=== PATIENT | female | born 1945 | race Caucasian/White ===

== ENCOUNTER 2018-09-06 13:49 | Inpatient (IN) ==
--- NOTE | 2018-09-06 14:16 | ED ---
HPI General Chief Complaint: Arrhythmia / Palpitations Stated Complaint: high heart rate x 1 wk Time Seen by Provider: 09/06/18 14:15 Source: patient Mode of arrival: ambulatory Limitations: no limitations History of Present Illness HPI narrative: Patient presents with complaints of mild shortness of breath while ambulating about [facility]. States that she has been going in and out of A. fib more frequently over the last several weeks. She stopped taking her Xarelto sometime ago. Continues to take a diltiazem for blood pressure and aspirin for anticoagulation. Denies any chest pain. Denies any urinary or bowel symptoms. Denies any nausea vomiting diarrhea or fever. complaint: Reports palpitations Onset (ago): week(s) Duration: intermittent Severity: mild Context: Reports occurred during exertion Arrhythmia history: Reports atrial fibrillation Associated symptoms: Reports other (none) Treatments prior to arrival: Reports other (none) Related Data Home Medications Medication Instructions Recorded Confirmed aspirin [Aspir-Low] 81 mg PO DAILY 09/06/18 09/06/18 atenolol 50 mg PO DAILY 09/06/18 09/06/18 atorvastatin 10 mg PO DAILY 09/06/18 09/06/18 diltiazem HCl [Cartia XT] 180 mg PO DAILY 09/06/18 09/06/18 levothyroxine 50 mcg PO DAILY 09/06/18 09/06/18 lisinopril-hydrochlorothiazide 1 tab PO DAILY 09/06/18 09/06/18 Allergies Allergy/AdvReac Type Severity Reaction Status Date / Time No Known Allergies Allergy Verified 09/06/18 13:54 Review of Systems ROS: all other systems reviewed are negative [facility] Medical History Medical History Afib (Acute) High cholesterol (Acute) Hx of hysterectomy (Acute) Hypertension (Acute) Thyroid disease (Acute) Social History Social History Substance History: No History of Abuse Second Hand Smoke Exposure: No Smoking Status: Never smoker How Often Do You Have a Drink Containing Alcohol: 4 or more times a week Recent Travel in [facility] within the Last 8 Weeks: No Recent Out of Country Travel within the Last 8 Weeks: No Immunization History Tetanus Immunization: Unsure Exam Narrative Exam Narrative: CARDIOVASCULAR: Irregular rate and rhythm without murmurs, gallops, or rubs. RESPIRATORY: Breath sounds equal bilaterally. No accessory muscle use. GASTROINTESTINAL: Abdomen soft, normal bowel sounds, non-tender, nondistended. MUSCULOSKELETAL: No cyanosis, or edema. BACK: Nontender without obvious deformity. No CVA tenderness. Course Initial Documented Vital Signs Temperature 98.0 F 09/06/18 13:51 Pulse Rate 103 H 09/06/18 13:51 Respiratory Rate 16 09/06/18 13:51 Blood Pressure 148/85 H 09/06/18 13:51 Pulse Oximetry 92 L 09/06/18 13:51 Last Documented Vital Signs Temperature 98.0 F 09/06/18 13:51 Pulse Rate 69 09/06/18 14:48 Respiratory Rate 20 09/06/18 14:48 Blood Pressure 126/82 09/06/18 14:48 Pulse Oximetry 96 09/06/18 14:48 Medical Decision Making MDM Narrative Medical decision making narrative: SALO score of one. Heparin drip initiated. Spoke with Dr. Arriola who is in agreement will admit for further evaluation. Medical Screen Exam Complete: Yes Emergency Medical Condition: Yes Differential Diagnosis Differential Diagnosis: Atrial fibrillation, acute coronary syndrome, pulmonary embolus Medical Records Medical records reviewed: Yes I reviewed the patient's medical records. Lab Data Result diagrams: 09/06/18 14:00 09/06/18 14:40 Lab Results 09/06/18 09/06/18 09/06/18 Range/Units 14:00 14:40 14:40 CBC w Diff Auto diff final WBC 6.9 (4.0-11.0) th/mm3 RBC 4.99 (4.00-5.30) mil/mm3 Hgb 16.2 H (11.6-15.3) gm/dL Hct 48.5 H (35.0-46.0) % MCV 97.3 (80.0-100.0) fL MCH 32.5 (27.0-34.0) pg MCHC 33.4 (32.0-36.0) % RDW 13.1 (11.6-17.2) % Plt Count 189 (150-450) th/mm3 MPV 9.7 (7.0-11.0) fL Neut % (Auto) 57.2 (16.0-70.0) % Lymph % (Auto) 30.2 (9.0-44.0) % [place] % (Auto) 8.9 H (0.0-8.0) % Eos % (Auto) 2.3 (0.0-4.0) % Baso % (Auto) 1.4 (0.0-2.0) % Neut # (Auto) 3.9 (1.8-7.7) th/mm3 Lymph # (Auto) 2.1 (1.0-4.8) th/mm3 [place] # (Auto) 0.6 (0.0-0.9) th/mm3 Eos # (Auto) 0.2 (0.0-0.4) th/mm3 Baso # (Auto) 0.1 (0.0-0.2) th/mm3 WBC Differential . Differential Comment . PT 10.8 (9.8-11.6) sec INR 1.1 Ratio APTT 25.8 (23.4-31.7) sec Sodium 136 (136-145) meq/L Potassium 3.9 (3.5-5.1) meq/L Chloride 101 (98-107) meq/L Carbon Dioxide 24.2 (21.0-32.0) meq/L Anion Gap 11 (5-15) meq/L BUN 13 (7-18) mg/dL Creatinine 0.80 (0.50-1.00) mg/dL Estimated GFR 70 L (>89) mL/min Random Glucose 116 H (74-106) mg/dL Calcium 8.7 (8.5-10.1) mg/dL Total Bilirubin 1.1 H (0.2-1.0) mg/dL AST 53 H (15-37) U/L ALT 41 (10-53) U/L Alkaline Phosphatase 92 (45-117) U/L Troponin I Less than 0.02 L (0.02-0.05) ng/mL Total Protein 7.1 (6.4-8.2) g/dL Albumin 3.7 (3.4-5.0) g/dL Imaging Data Radiologist's impression: Chest X-Ray 09/06/18 14:16 CONCLUSION: Cardiomegaly. Chest CTA 09/06/18 14:25 CONCLUSION: 1. Extensive large bilateral saddle pulmonary emboli are noted extending into the branches of all lobes bilaterally. 2. Markedly enlarged heart and coronary artery calcifications. 3. Scattered atelectasis and/or fibrotic scarring bilaterally. ECG Data Attestation: I personally reviewed and interpreted this ECG as follows: (EKG reveals A. fib with a rate of 81, no ST segment elevation or depression) Discharge Plan Discharge Disposition Patient Disposition: ED Admit(ED Internal Use Only) Discharge Condition Condition: Good Discharge Order Discharge Orders: ED Use Only Admit Order (Routine); Ordered 09/06/18 Ordered By: Sahil Thurston Discharge Details Diagnosis: Pulmonary emboli Physicians Team ED Provider: Sahil Thurston Primary Care Provider: Torie Padgett Attending Provider: David Arriola Discharge Interventions Interventions: Vital Signs Last Done: 09/06/18 14:11 Status ED Status: Admitted Patient
[2018-09-06 14:23] LABS: Baso # (Auto) 0.1 th/mm3 (0.0-0.2); Baso % (Auto) 1.4 % (0.0-2.0); Eos # (Auto) 0.2 th/mm3 (0.0-0.4); Eos % (Auto) 2.3 % (0.0-4.0); Hematocrit 48.5 % (35.0-46.0); Hemoglobin 16.2 gm/dL (11.6-15.3); Lymph # (Auto) 2.1 th/mm3 (1.0-4.8); Lymph % (Auto) 30.2 % (9.0-44.0); Mean Corpuscular HGB Conc 33.4 % (32.0-36.0); Mean Corpuscular Hemoglobin 32.5 pg (27.0-34.0); Mean Corpuscular Volume 97.3 fL (80.0-100.0); Mean Platelet Volume 9.7 fL (7.0-11.0); Mono # (Auto) 0.6 th/mm3 (0.0-0.9); Mono % (Auto) 8.9 % (0.0-8.0); Neut # (Auto) 3.9 th/mm3 (1.8-7.7); Neut % (Auto) 57.2 % (16.0-70.0); Platelet Count 189 th/mm3 (150-450); Red Blood Count 4.99 mil/mm3 (4.00-5.30); Red Cell Distribution Width 13.1 % (11.6-17.2); White Blood Count 6.9 th/mm3 (4.0-11.0)
--- NOTE | 2018-09-06 14:55 | XR ---
EXAM DATE: 09/06/2018 2:49 PM EST AGE/SEX: 73 years / Female INDICATIONS: Short of breath CLINICAL DATA: This is the patient's initial encounter. Patient reports that signs and symptoms have been present for 1 week and indicates a pain score of 0/10. MEDICAL/SURGICAL HISTORY: . . COMPARISON: No prior exams available for comparison. FINDINGS: The heart size is enlarged. Aortic calcifications are present. The lungs are grossly clear. No effusi on is seen. CONCLUSION: Cardiomegaly. Electronically signed by: Vlad Minor MD Board Certified Radiologist 09/06/2018 2:53 PM EST
[2018-09-06 15:16] LABS: Chloride 101 meq/L (98-107); Potassium 3.9 meq/L (3.5-5.1); Sodium 136 meq/L (136-145)
[2018-09-06 15:19] LABS: Albumin 3.7 g/dL (3.4-5.0); Anion Gap 11 meq/L (5-15); Calcium 8.7 mg/dL (8.5-10.1); Carbon Dioxide 24.2 meq/L (21.0-32.0)
[2018-09-06 15:20] LABS: Blood Urea Nitrogen 13 mg/dL (7-18); Glucose,Random 116 mg/dL (74-106)
[2018-09-06 15:23] LABS: Alanine Aminotransferase 41 U/L (10-53); Aspartate Aminotransferase 53 U/L (15-37); Glomerular Filtration Rate 70 mL/min (>89)
[2018-09-06 15:24] LABS: Total Protein 7.1 g/dL (6.4-8.2)
[2018-09-06 15:25] LABS: Alkaline Phosphatase 92 U/L (45-117)
--- NOTE | 2018-09-06 15:51 | CT ---
EXAM DATE: 09/06/2018 3:39 PM EST AGE/SEX: 73 years / Female INDICATIONS: Heart palpitations, increased heart rate for a week. CLINICAL DATA: This is the patient's initial encounter. Patient reports that signs and symptoms have been present for 1 week and indicates a pain score of 2/10. MEDICAL/SURGICAL HISTORY: Hypercholesterolemia. Hypertension. Thyroid disease. Hysterectomy. RADIATION DOSE: 7.85 CTDI (mGy) COMPARISON: No prior exams available for comparison. TECHNIQUE: Volumetric scanning was performed using a multi-row detector CT scanner during bolus infu louis of 100ml ml Omnipaque 350 (iohexol) nonionic water-soluble contrast as a single exam dose. The data was post processed with a variety of visualization algorithms including full volume maximum inte nsity projection and sliding thin slab reformation. Using automated exposure control and adjustment o f the mA and/or kV according to patient size, radiation dose was kept as low as reasonably achievable to obtain optimal diagnostic quality images. DICOM format image data is available electronically fo r review and comparison. FINDINGS: Pulmonary Arteries: Extensive large bilateral saddle pulmonary emboli are noted extending into the b ranches of all lobes bilaterally. Lung: No infiltrates seen. Scattered atelectasis and/or fibrotic scarring is noted bilaterally. Effusion: None. Mediastinum: No evidence of mediastinal or hilar adenopathy. The heart is markedly enlarged. Coronar y artery calcifications are noted. Other: The axilla is unremarkable. CONCLUSION: 1. Extensive large bilateral saddle pulmonary emboli are noted extending into the branches of all lo bes bilaterally. 2. Markedly enlarged heart and coronary artery calcifications. 3. Scattered atelectasis and/or fibrotic scarring bilaterally. Electronically signed by: Mode Aguayo MD Board Certified Radiologist 09/06/2018 3:50 PM EST
[2018-09-06 15:58] LABS: Activated Partial Thrombo Time 25.8 sec (23.4-31.7); INR 1.1 Ratio; Prothrombin Time 10.8 sec (9.8-11.6)
[2018-09-06] MEDS ORDERED: Heparin 10,000 UNITS/10 ML Vial (for IV use) IV.PUSH STA (16:18)
[2018-09-06] MEDS: Heparin Drip 25,000 UNIT/250 ML BAG IV.CONT PRN (16:32)
[2018-09-06] MEDS ORDERED: Bisacodyl 10 MG Supp RECTAL PRN (16:33)
--- NOTE | 2018-09-06 17:24 | P.HPIM ---
History of Present Illness Primary Care Physician: Torie Padgett MD History of Present Illness: 73 yo M with h/o HTN,A.fib,Hypothyroidism, who presented to ER with shortness of breath. Patient reports that SOB started about 3 months ago after coming back from [place], but has been progressively getting worse. Prior to that she could to 3 miles on treadmill,and even hike without problems. When she came back she noticed that she got some SOB with activity but non when at rest). She had to reduce the distance done on treadmill. She would get short of breath going up 2 flights of stairs. This progressively got worse and this morning while making the bed she felt tired and SOB. She went to the [place] with her this afternoon and was exhausted and SOB after just walking a short distance, hence she decided to come to ER. 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 She denies dizziness, lightheadedness,chest pain, or passing out. ROS is negative. On presentation to the ER,patient had stable vitals, labs were unremarkable, troponin negative. CXR was unremarkable.CTA chest revealed extensive bilateral saddle pulmonary emboli extending into branches of all lobes bilaterally. Patient was started on heparin drip. Inpatient Certification Inpatient Certification: I certify that the inpatient services were ordered in accordance with Medicare regulations governing the order. This includes certification that hospital inpatient services are reasonable and necessary and in the case of services not specified as inpatient-only under 42 CFR 419.22(n), that they are appropriately provided as inpatient services in accordance to with the 2-midnight benchmark under 43 CFR 412.3(e) Estimated Total Length of Stay (Days): 3 Plans for Post Hospital Care: Home Review of Systems Review of Systems: all other systems reviewed are negative [facility] Medical History Medical History Afib (Acute) High cholesterol (Acute) Hx of hysterectomy (Acute) Hypertension (Acute) Thyroid disease (Acute) Social History Social History Substance History: No History of Abuse Second Hand Smoke Exposure: No Smoking Status: Never smoker How Often Do You Have a Drink Containing Alcohol: 2 to 4 times a month Recent Travel in [facility] within the Last 8 Weeks: No Recent Out of Country Travel within the Last 8 Weeks: No Immunization History Tetanus Immunization: Unsure Medications and Allergies Allergies Allergy/AdvReac Type Severity Reaction Status Date / Time No Known Allergies Allergy Verified 09/06/18 13:54 Home Medications Medication Instructions Recorded Confirmed Type aspirin [Aspir-Low] 81 mg PO DAILY 09/06/18 09/06/18 History atenolol 50 mg PO DAILY 09/06/18 09/06/18 History atorvastatin 10 mg PO DAILY 09/06/18 09/06/18 History diltiazem HCl [Cartia XT] 180 mg PO DAILY 09/06/18 09/06/18 History levothyroxine 50 mcg PO DAILY 09/06/18 09/06/18 History lisinopril-hydrochlorothiazide 1 tab PO DAILY 09/06/18 09/06/18 History Active Medications: Active Medications Al Hydroxide/Mg Hydroxide (Milk Of Magnesia Liq) 30 ml PO Q12H PRN PRN Reason: Mild Constipation Bisacodyl (Dulcolax Supp) 10 mg RECTAL DAILY PRN PRN Reason: SEVERE CONSITIPATION Heparin Sodium/Dextrose (Heparin/D5w 25,000 U/250 Ml) 25,000 unit in 250 mls @ 0 mls/hr IV.CONT TITRATE PRN; Protocol PRN Reason: Per Protocol Last Admin: 09/06/18 16:32 Dose: 1,100 units/hr, 11 mls/hr Lactulose (Lactulose Liq) 30 ml PO DAILY PRN PRN Reason: SEVERE CONSITIPATION Senna/Docusate Sodium (Lynette-Colace) 1 tab PO BID BRITTNEY Sennosides (Senokot) 17.2 mg PO Q12H PRN PRN Reason: Moderate Constipation Sodium Chloride (Ns Flush) 2 ml IV.FLUSH UNSCH PRN PRN Reason: FLUSH AFTER USING IV ACCESS Sodium Chloride (Ns Flush) 2 ml IV.FLUSH BID BRITTNEY Sodium Chloride (Ns Flush) 2 ml IV.FLUSH PRN PRN PRN Reason: FLUSH AFTER USING IV ACCESS Physical Exam Vital signs: Last Vital Signs Temp 98.0 F 09/06/18 13:51 Pulse 59 L 09/06/18 16:36 Resp 20 09/06/18 16:36 BP 124/80 09/06/18 16:36 Pulse Ox 97 09/06/18 16:36 Intake & Output 09/04/18 09/05/18 09/06/18 09/07/18 06:59 06:59 06:59 06:59 Weight 58.4 kg Narrative: GENERAL: This is a well-nourished, well-developed patient, in no apparent distress. HEENT:not pale,anicteric,acyanotic, nasal canula in situ. CARDIOVASCULAR: irregular rhythm, without murmurs, gallops, or rubs. RESPIRATORY: Clear to auscultation. Breath sounds equal bilaterally. No wheezes , rales, or rhonchi. GASTROINTESTINAL: Abdomen soft, non-tender, nondistended. Normal active bowel sounds MUSCULOSKELETAL: Extremities without clubbing, cyanosis, or edema. NEURO: Alert & Oriented x4 to person, place, time, situation. Moves all ext x4 Results Labs CBC & Chem 7: 09/06/18 14:00 09/06/18 14:40 Imaging Impressions Chest X-Ray 09/06/18 14:16 CONCLUSION: Cardiomegaly. Chest CTA 09/06/18 14:25 CONCLUSION: 1. Extensive large bilateral saddle pulmonary emboli are noted extending into the branches of all lobes bilaterally. 2. Markedly enlarged heart and coronary artery calcifications. 3. Scattered atelectasis and/or fibrotic scarring bilaterally. Caprini VTE Risk Assessment Caprini VTE Risk Assessment: Moderate/High Risk (score >= 2) Caprini Risk Assessment Model: Point Value = 1 Point Value = 2 Point Value = 3 Point Value = 5 Age 41-60 Minor surgery BMI > 25 kg/m2 Swollen legs Varicose veins or History of unexplained or recurrent spontaneous Oral contraceptives or hormone replacement Sepsis (< 1 month) Serious lung disease, including pneumonia (< 1 month) Abnormal pulmonary function Acute myocardial infarction Congestive heart failure (< 1 month) History of inflammatory bowel disease Medical patient at bed rest Age 61-74 Arthroscopic surgery Major open surgery (> 45 min) Laparoscopic surgery (> 45 min) Malignancy Confined to bed (> 72 hours) Immobilizing plaster cast Central venous access Age >= 75 History of VTE Family history of VTE Factor V Leiden Prothrombin [id number] Lupus anticoagulant Anticardiolipin antibodies Elevated serum homocysteine Heparin-induced thrombocytopenia Other congenital or acquired thrombophilia Stroke (< 1 month) Elective arthroplasty Hip, pelvis, or leg fracture Acute spinal cord injury (< 1 month) Prophylaxis Regimen: Total Risk Factor Score Risk Level Prophylaxis Regimen 0-1 Low Early ambulation 2 Moderate Order ONE of the following: *Sequential Compression Device (SCD) *Heparin 5000 units SQ BID 3-4 Higher Order ONE of the following medications: *Heparin 5000 units SQ TID *Enoxaparin/Lovenox 40 mg SQ daily (WT < 150 kg, CrCl > 30 mL/min) *Enoxaparin/Lovenox 30 mg SQ daily (WT < 150 kg, CrCl > 10-29 mL/min) *Enoxaparin/Lovenox 30 mg SQ BID (WT < 150 kg, CrCl > 30 mL/min) AND/OR *Sequential Compression Device (SCD) 5 or more Highest Order ONE of the following medications: *Heparin 5000 units SQ TID (Preferred with Epidurals) *Enoxaparin/Lovenox 40 mg SQ daily (WT < 150 kg, CrCl > 30 mL/min) *Enoxaparin/Lovenox 30 mg SQ daily (WT < 150 kg, CrCl > 10-29 mL/min) *Enoxaparin/Lovenox 30 mg SQ BID (WT < 150 kg, CrCl > 30 mL/min) AND *Sequential Compression Device (SCD) Assessment and Plan Plan 73 yo M with h/o HTN,A.fib,Hypothyroidism, who presented to ER with shortness of breath, found to have a saddle PE. Acute problem: SADDLE PULMONARY EMBOLISM: Patient hemodynamically stable, was saturating 92% on room air in ER,but put on nasal canula, sats 95-97%. no shortness of breath at rest. troponin negative. Continue Heparin drip. Obtain 2D ECHO to eval RV strain, LE dopplers. d/w patient re: anticoagulation, she would like to go back to Xarelto on discharge. will monitor patient in ICU for now given extent of her PE. Stable chronic conditions: #TN-resume home medication #Atrial fib-rate controlled, resume home medication. #Hypothyroidism-continue Levothyroxine. #Hyperlipidemia-cont Atorvastatin
[2018-09-06] MEDS: Senna/Docusate Sodium 8.6/50 MG Tablet PO SCH (22:15)
[2018-09-07] MEDS: Levothyroxine 50 MCG Tablet PO SCH (06:01)
[2018-09-07 07:45] LABS: Hemoglobin 14.8 gm/dL (11.6-15.3); Mean Corpuscular HGB Conc 33.6 % (32.0-36.0); Mean Corpuscular Volume 98.4 fL (80.0-100.0); Mean Platelet Volume 10.4 fL (7.0-11.0); Platelet Count 169 th/mm3 (150-450); Red Blood Count 4.47 mil/mm3 (4.00-5.30); Red Cell Distribution Width 13.6 % (11.6-17.2); White Blood Count 5.1 th/mm3 (4.0-11.0)
[2018-09-07] MEDS: dilTIAZem CD 180 MG Capsule PO SCH (08:29)
[2018-09-07] MEDS: Atenolol 50 MG Tablet PO SCH (08:30)
[2018-09-07] MEDS: Senna/Docusate Sodium 8.6/50 MG Tablet PO SCH ×2 (08:30→21:20)
--- NOTE | 2018-09-07 11:20 | P.PNIM ---
Subjective Interval history: feels ok, no dyspnea at rest. was able to walk to commode without no symptoms. Interval history-desaturated to 87% on room air, currently on 4l/min nasal canula. Physical Exam Vital signs: Last Vital Signs Temp 97.9 F 09/07/18 08:00 Pulse 96 H 09/07/18 10:00 Resp 25 H 09/07/18 10:00 BP 115/85 09/07/18 10:00 Pulse Ox 97 09/07/18 10:00 Intake & Output 09/05/18 09/06/18 09/07/18 09/08/18 06:59 06:59 06:59 06:59 Intake Total 240 / 240 Balance 240 / 240 Weight 57.8 kg Narrative: GENERAL: This is a well-nourished, well-developed patient, in no apparent distress. HEENT:not pale,anicteric,acyanotic, nasal canula in situ. CARDIOVASCULAR: irregular rhythm, without murmurs, gallops, or rubs. RESPIRATORY: Clear to auscultation. Breath sounds equal bilaterally. No wheezes , rales, or rhonchi. GASTROINTESTINAL: Abdomen soft, non-tender, nondistended. Normal active bowel sounds MUSCULOSKELETAL: Extremities without clubbing, cyanosis, or edema. NEURO: Alert & Oriented x4 to person, place, time, situation. Moves all ext x4 Results Labs CBC & Chem 7: 09/07/18 07:15 09/06/18 14:40 Imaging Imaging: Impressions Chest X-Ray 09/06/18 14:16 CONCLUSION: Cardiomegaly. Chest CTA 09/06/18 14:25 CONCLUSION: 1. Extensive large bilateral saddle pulmonary emboli are noted extending into the branches of all lobes bilaterally. 2. Markedly enlarged heart and coronary artery calcifications. 3. Scattered atelectasis and/or fibrotic scarring bilaterally. Assessment and Plan Plan 73 yo M with h/o HTN,A.fib,Hypothyroidism, who presented to ER with shortness of breath, found to have a saddle PE. Acute problem: Saddle Pulmonary Embolism: Patient remains hemodynamically stable, was saturating 87% on room air this morning,but put on nasal canula, sats 95-97%. no shortness of breath at rest. troponin negative. Continue Heparin drip. d/w patient re: anticoagulation and that she will likely need to be on lifelong AC now; she would like to go back to [facility] on discharge. will monitor patient in ICU for now given extent of her PE. Obtain 2D ECHO to eval RV strain--apparently done this afternoon, report still pending. check LE dopplers--negative for DVT. This afternoon patient had episodes of intermittent hypotension with lowest systolic BP being 89, MAP 65. 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 Transfer order has been placed. I have informed the patient and her of the plan. Stable chronic conditions: #HTN-continue home medication #Atrial fib-rate controlled, resume home medication. #Hypothyroidism-continue Levothyroxine. #Hyperlipidemia-cont Atorvastatin discussed plan with patient and her family at bedside. Progress Note: Quality VTE Deep Vein Thrombosis/Pulmonary Embolism Present on Admission: Yes
--- NOTE | 2018-09-07 12:47 | US ---
EXAM DATE: 09/07/2018 12:41 PM EST AGE/SEX: 73 years / Female INDICATIONS: Pulmonary embolism. Evaluate for DVT. CLINICAL DATA: This is the patient's initial encounter. Patient reports that signs and symptoms have been present for 1 week and indicates a pain score of 0/10. MEDICAL/SURGICAL HISTORY: Hypercholesterolemia. Hypertension. Atrial fibrillation. Thyroid di sease. Hysterectomy. COMPARISON: No prior exams available for comparison. TECHNIQUE: Venous ultrasound of both lower extremities was performed from the inguinal ligament to t he proximal calf. Real-time, color Doppler and spectral tracing, compression and augmentation techni ques were used. FINDINGS: Right Leg: Normal compression of the deep venous system from the inguinal region to the proximal ienz f. No echogenic clot is seen. Normal response of the venous system to augmentation and respiration. Left Leg: Normal compression of the deep venous system from the inguinal region to the proximal calf . No echogenic clot is seen. Normal response of the venous system to augmentation and respiration. Other: None. CONCLUSION: No DVT. Electronically signed by: Vlad Minor MD Board Certified Radiologist 09/07/2018 12:45 PM EST
[2018-09-07] MEDS ORDERED: Sodium Chlor 0.9% Inj 500 ML IV.SIG ONE (14:15)
--- NOTE | 2018-09-07 15:54 | ECHRPT ---
Indication: Shortness of breath CONCLUSIONS The left ventricular systolic function is mildly reduced with an estimated ejection fraction in the range of 45- 50%. Wall thickness is normal. Normal left ventricular size. There is moderate tricuspid regurgitation. The estimated pulmonary arterial pressure is 48.7 mmHg. technically difficult study BP: / HR: Rhythm: Sinus MEASUREMENTS (Male / Female) Normal Values Technical Quality:Fair 2D ECHO LV Diastolic Diameter PLAX 3.7 cm 4.2 - 5.9 / 3.9 - 5.3 cm LV Systolic Diameter PLAX 3.0 cm IVS Diastolic Thickness 1.0 cm 0.6 - 1.0 / 0.6 - 0.9 cm LVPW Diastolic Thickness 1.0 cm 0.6 - 1.0 / 0.6 - 0.9 cm LV Relative Wall Thickness 0.6 LVOT Diameter 2.0 cm M-MODE Aortic Root Diameter MM 3.3 cm LA Systolic Diameter MM 3.9 cm LA Ao Ratio MM 1.2 AV Cusp Separation MM 1.7 cm DOPPLER AV Peak Velocity 119.0 cm/s AV Peak Gradient 5.7 mmHg LVOT Peak Velocity 66.6 cm/s LVOT Peak Gradient 1.8 mmHg AV Area Cont Eq pk 1.8 cm TR Peak Velocity 311.0 cm/s TR Peak Gradient 38.7 mmHg Right Atrial Pressure 10.0 mmHg Pulmonary Artery Systolic Pressu 48.7 mmHg Right Ventricular Systolic Press 48.7 mmHg PV Peak Velocity 67.9 cm/s PV Peak Gradient 1.8 mmHg FINDINGS LEFT VENTRICLE The left ventricular systolic function is mildly reduced with an estimated ejection fraction in the range of 45- 50%. Wall thickness is normal. Normal left ventricular size. RIGHT VENTRICLE Normal right ventricular size and systolic function. LEFT ATRIUM The left atrial size is normal. RIGHT ATRIUM The right atrial size is normal. ATRIAL SEPTUM Normal atrial septal thickness without atrial level shunting by limited color doppler interrogation. AORTA The aortic root and proximal ascending aorta are normal in size on limited imaging. MITRAL VALVE Structurally normal mitral valve. No mitral valve stenosis or regurgitation. AORTIC VALVE Trileaflet aortic valve. No aortic valve stenosis or regurgitation. TRICUSPID VALVE There is moderate tricuspid regurgitation. The estimated pulmonary arterial pressure is 48.7 mmHg. PULMONARY VALVE No pulmonary valve regurgitation or stenosis. VESSELS The inferior vena cava is normal in size. PERICARDIUM No pericardial effusion. Evaristo Campos MD, FACC, FSCAI (Electronically Signed) Final Date:07 September 2018 15:53
--- NOTE | 2018-09-07 21:17 | P.CONCC ---
History of Present Illness Service: Critical care medicine Consult date: 09/07/18 Requesting Physician: David Arriola Reason for Consult: submassive pulmonary embolism Primary Care Provider: Torie Padgett MD Chief Complaint: shortness of breath History of Present Illness: 73yF with history of afib who presents with subacute shortness of breath and poor exercise tolerance over last 1 week. originally admitted to hospitalist service for submassive PE. developed transient hypotension requiring transfer to [facility] ICU. Per the patient, she was originally on Xarelto for afib, but after consultation with her physician, she and her weighed the risks/ benefits of full anticoagulation and decided 81mg ASA was a better therapeutic option for her, when weighing all the risks and benefits. The patient typically walks up 7 flights of stairs daily without problems, but over last 1 week had difficulty walking on flat ground without dypsnea. Also has been traveling significantly since april, and has had a number of long car and plane rides. BNP slightly elevated. trop negative x 2. CT pulmonary angiogram significant for multiple bilateral pulmonary emboli, which meet clot burden criteria for submassive PE. patient stable on nc o2 with stable hemodynamics on my evaluation. 2d echo with EF 45% and moderate pulmonary hypertension, but per echo report by Dr. Campos, normal RV size and function. with the exception of decreased exercise tolerance and SOB, WILKINS, remainder of the ROS negative. specifically, negative for chest pain, fever, chills, n/v/c/d or abd pain, cough , congestion. FHx: negative for clotting disorders, bleeding disorders, PE, stroke, CT. Review of Systems All other systems reviewed negative except as stated in HPI PMFSH - History History Provided By: Patient - Medical History Medical History: Medical History (Last Reviewed 09/07/18 @ 21:10 by Gennaro Johnson MD) Afib High cholesterol Hx of hysterectomy Hypertension Thyroid disease - Social History I have reviewed the patient's Social History: Yes - Tobacco History Second Hand Smoke Exposure: No Smoking Status: Never smoker - Alcohol History How Often Do You Have a Drink Containing Alcohol: 2 to 4 times a month - Substance Use History Substance History: No History of Abuse - Travel History Recent Travel in the [place] Within the Last 8 Weeks: No Recent Travel Out of the Country Within the Last 8 Weeks: No - Immunization History Tetanus Immunization: Unsure Hx Influenza Vaccine This Season: Yes Medications and Allergies Active Medications: Active Medications Al Hydroxide/Mg Hydroxide (Milk Of Magnesia Liq) 30 ml PO Q12H PRN PRN Reason: Mild Constipation Aspirin (Ecotrin) 81 mg PO DAILY [facility] Last Admin: 09/07/18 08:29 Dose: 81 mg Atenolol (Tenormin) 50 mg PO DAILY [facility] Last Admin: 09/07/18 08:30 Dose: 50 mg Atorvastatin Calcium (Lipitor) 10 mg PO DAILY@2100 [facility] Last Admin: 09/06/18 22:15 Dose: 10 mg Bisacodyl (Dulcolax Supp) 10 mg RECTAL DAILY PRN PRN Reason: SEVERE CONSITIPATION Chlorhexidine Gluconate (Chlorhexidine 2% Cloth) 3 pack TOPICAL DAILY@0400 [facility] Stop: 09/13/18 03:59 Chlorhexidine Gluconate (Chlorhexidine 2% Cloth) 3 pack TOPICAL DAILY@0400 PRN PRN Reason: Extra cloth needed Stop: 09/13/18 03:59 Diltiazem HCl (Cardizem Cd 24hr) 180 mg PO DAILY [facility] Last Admin: 09/07/18 08:29 Dose: 180 mg Heparin Sodium/Dextrose (Heparin/D5w 25,000 U/250 Ml) 25,000 unit in 250 mls @ 0 mls/hr IV.CONT TITRATE PRN; Protocol PRN Reason: Per Protocol Last Titration: 09/07/18 01:48 Dose: 700 units/hr, 7 mls/hr Norepinephrine Bitartrate (Levophed-Dextrose 4 Mg/250 Ml Drip) 4 mg in 250 mls @ 7.5 mls/hr IV.SIG TITRATE PRN; Protocol PRN Reason: Per Protocol Lactulose (Lactulose Liq) 30 ml PO DAILY PRN PRN Reason: SEVERE CONSITIPATION Levothyroxine Sodium (Synthroid) 50 mcg PO DAILY@0600 [facility] Last Admin: 09/07/18 06:01 Dose: 50 mcg Senna/Docusate Sodium (Lynette-Colace) 1 tab PO BID [facility] Last Admin: 09/07/18 08:30 Dose: Not Given Sennosides (Senokot) 17.2 mg PO Q12H PRN PRN Reason: Moderate Constipation Sodium Chloride (Ns Flush) 2 ml IV.FLUSH BID [facility] Last Admin: 09/07/18 08:31 Dose: Not Given Sodium Chloride (Ns Flush) 2 ml IV.FLUSH PRN PRN PRN Reason: FLUSH AFTER USING IV ACCESS Terbutaline Sulfate (Brethine Inj) 1 mg SQ UNSCH PRN PRN Reason: For Extravasation Allergies Allergy/AdvReac Type Severity Reaction Status Date / Time No Known Allergies Allergy Verified 09/06/18 13:54 Home Medications Medication Instructions Recorded Confirmed Type aspirin [Aspir-Low] 81 mg PO DAILY 09/06/18 09/06/18 History atenolol 50 mg PO DAILY 09/06/18 09/06/18 History atorvastatin 10 mg PO DAILY 09/06/18 09/06/18 History diltiazem HCl [Cartia XT] 180 mg PO DAILY 09/06/18 09/06/18 History levothyroxine 50 mcg PO DAILY 09/06/18 09/06/18 History lisinopril-hydrochlorothiazide 1 tab PO DAILY 09/06/18 09/06/18 History Physical Exam Vital signs: Vital Signs 09/06/18 23:00 09/07/18 00:00 09/07/18 01:00 Temperature 36.9 C Pulse Rate 70 68 64 Respiratory Rate 19 17 18 Blood Pressure 119/87 106/73 113/73 Pulse Oximetry 97 97 98 09/07/18 03:00 09/07/18 05:00 09/07/18 06:00 Temperature Pulse Rate 62 58 L 66 Respiratory Rate 17 17 20 Blood Pressure 98/72 L 107/60 115/87 Pulse Oximetry 99 99 99 09/07/18 07:00 09/07/18 07:28 09/07/18 08:00 Temperature 36.6 C Pulse Rate 68 74 90 Respiratory Rate 21 26 H 31 H Blood Pressure 132/85 132/79 127/96 H Pulse Oximetry 98 96 98 09/07/18 08:15 09/07/18 09:20 09/07/18 10:00 Temperature Pulse Rate 106 H 96 H Respiratory Rate 35 H 25 H Blood Pressure 133/77 115/85 Pulse Oximetry 96 97 97 09/07/18 11:00 09/07/18 12:14 09/07/18 13:00 Temperature 36.7 C Pulse Rate 88 94 H 90 Respiratory Rate 32 H 29 H 32 H Blood Pressure 111/84 119/75 88/59 L Pulse Oximetry 94 L 96 97 09/07/18 13:01 09/07/18 13:03 09/07/18 14:00 Temperature Pulse Rate 88 84 66 Respiratory Rate 27 H 30 H 22 Blood Pressure 78/55 L 93/64 L 89/66 L Pulse Oximetry 97 95 92 L 09/07/18 14:29 09/07/18 14:45 09/07/18 14:59 Temperature Pulse Rate 68 70 70 Respiratory Rate 21 32 H 29 H Blood Pressure 114/81 143/81 H 122/77 Pulse Oximetry 94 L 96 95 09/07/18 15:48 09/07/18 15:59 09/07/18 16:59 Temperature 37.1 C Pulse Rate 72 86 Respiratory Rate 21 30 H Blood Pressure 138/87 138/84 Pulse Oximetry 95 96 95 09/07/18 17:59 09/07/18 18:00 09/07/18 18:45 Temperature Pulse Rate 86 84 Respiratory Rate 32 H 29 H Blood Pressure 144/89 H Pulse Oximetry 99 99 96 Intake & Output 09/07/18 09/07/18 09/08/18 06:59 18:59 06:59 Intake Total 740 / 740 Balance 740 / 740 Weight 57.8 kg Intake: IV 500 / 500 NS Inj 500 ML @ Wide Open IV. 500 / 500 SIG BOLUS ONE Rx#:[id number] Oral 240 / 240 Other: # Voids 3 3 Date of Last Bowel Movement 09/06/18 09/06/18 Weight On Admission 58.3 kg Narrative: GENERAL: elderly female, lying in bed, no acute distress. HEENT: Normocephalic. Atraumatic. Pupils equal, round, reactive, conjugate. Mucous membranes are moist NECK: Trachea is midline. There is no JVD. CHEST: equal chest rise. nc o2. unlabored. no accessory muscle use. CARDIOVASCULAR: normal rate, slightly irregular rhythm. afib by tele. ABDOMEN: Soft, nontender, nondistended. No guarding. MUSCULOSKELETAL: Pulses 2+. No peripheral edema. NEUROLOGICAL: RASS 0. CAM-. follows commands. alert and oriented x 3. no focal deficits. Assessment and Plan - Assessment and Plan Plan: Assessment: 73yF with submassive PE by radiographic evidence, but without biomarker or echo evidence of RV strain. Clinically, this also appears to be subacute by clinical history, starting approximately a week ago. Combined with advanced age, medical comorbidities, and lack of evidence of RV stain, lytic therapy is relatively contra-indicated, as the risks of major bleeding outweigh any additional benefits. I have discussed this with the patient and , and they expressed understanding. We will proceed with conservative management and heparinization. I did express that there continued to be an increase risk of sudden-cardiac and the possibility of long-term [id number] limiting dyspnea secondary to WHO Class IV pulmonary hypertension with submassive PE. Admit to ICU for close monitoring. Active Problems: Atrial fibrillation Acute hypoxemia Transient hypotension- resolved Submassive pulmonary embolism Plan: - continue heparin infusion - would likely prefer to place back on home xarelto, as she has tolerated this well in the past - nc o2 for goal spo2 > 90% - will not pursue lytic therapy at this time - 2d echo: normal RV size and function. EF 45%. - needs outpatient cardiac follow up (sees Dr. Epstein as an outpatient) for newly diagnosed mildly depressed LVEF - does not need hematology work-up at this time: has 2 clinical reasons for hypercoagulability, recent travel with long periods of immobility, and afib on inadequate anticoagulation. - admit to ICU - given chronicity of the PE, likely could begin gentle ambulation with PE as early as tomorrow
--- NOTE | 2018-09-08 01:22 | ECG ---
Date Performed: 09/06/2018 Time Performed: 14:10:58 PTAGE: 73 years EKG: ATRIAL FIBRILLATION NONSPECIFIC ST & T-WAVE ABNORMALITY ABNORMAL RHYTHM ECG INTERPRETATION BASED ON A DEFAULT AGE OF 40 YEARS PREVIOUS TRACING : 06/13/1994 09.33 Compared to previous tracing, now in AFib with ST/T wave changes noted DOCTOR: Asa West Interpretating Date/Time 09/08/2018 01:21:31
[2018-09-08] MEDS: Heparin Drip 25,000 UNIT/250 ML BAG IV.CONT PRN (03:14)
[2018-09-08] MEDS ORDERED: Chlorhexidine Gluconate 2% 1 Pack (2 Cloths) TOPICAL PRN (04:00)
[2018-09-08] MEDS: Levothyroxine 50 MCG Tablet PO SCH (05:32)
[2018-09-08] MEDS: Chlorhexidine Gluconate 2% 1 Pack (2 Cloths) TOPICAL SCH (05:32)
[2018-09-08 06:29] LABS: Hematocrit 43.8 % (35.0-46.0); Hemoglobin 15.2 gm/dL (11.6-15.3); Mean Corpuscular HGB Conc 34.7 % (32.0-36.0); Mean Corpuscular Hemoglobin 34.2 pg (27.0-34.0); Mean Corpuscular Volume 98.5 fL (80.0-100.0); Platelet Count 153 th/mm3 (150-450); Red Blood Count 4.45 mil/mm3 (4.00-5.30); Red Cell Distribution Width 13.4 % (11.6-17.2); White Blood Count 5.7 th/mm3 (4.0-11.0)
[2018-09-08] MEDS: dilTIAZem CD 180 MG Capsule PO SCH (08:21)
[2018-09-08] MEDS: Atenolol 50 MG Tablet PO SCH (08:22)
[2018-09-08] MEDS: Senna/Docusate Sodium 8.6/50 MG Tablet PO SCH ×2 (08:22→20:01)
--- NOTE | 2018-09-08 14:05 | P.PNCC ---
Subjective Subjective Remarks/Hospital Course: 09/07: 73yF with history of afib who presents with subacute shortness of breath and poor exercise tolerance over last 1 week. originally admitted to hospitalist service for submassive PE. developed transient hypotension requiring transfer to [facility] ICU. Per the patient, she was originally on Xarelto for afib, but after consultation with her physician, she and her weighed the risks/ benefits of full anticoagulation and decided 81mg ASA was a better therapeutic option for her, when weighing all the risks and benefits. The patient typically walks up 7 flights of stairs daily without problems, but over last 1 week had difficulty walking on flat ground without dypsnea. Also has been traveling significantly since april, and has had a number of long car and plane rides. BNP slightly elevated. trop negative x 2. CT pulmonary angiogram significant for multiple bilateral pulmonary emboli, which meet clot burden criteria for submassive PE. patient stable on nc o2 with stable hemodynamics on my evaluation. 2d echo with EF 45% and moderate pulmonary hypertension, but per echo report by Dr. Campos, normal RV size and function. with the exception of decreased exercise tolerance and SOB, WILKINS, remainder of the ROS negative. specifically, negative for chest pain, fever, chills, n/v/c/d or abd pain, cough , congestion. FHx: negative for clotting disorders, bleeding disorders, PE, stroke, NV. 09/08: Sitting up in bed comfortably not in any acute distress. Denies any chest pain shortness of breath dizziness or lightheadedness. On anticoagulation with heparin. Objective Vital Signs / I&O: Vital Signs 09/07/18 14:00 09/07/18 14:29 09/07/18 14:45 Temperature Pulse Rate 66 68 70 Respiratory Rate 22 21 32 H Blood Pressure 89/66 L 114/81 143/81 H Pulse Oximetry 92 L 94 L 96 09/07/18 14:59 09/07/18 15:48 09/07/18 15:59 Temperature Pulse Rate 70 72 Respiratory Rate 29 H 21 Blood Pressure 122/77 138/87 Pulse Oximetry 95 95 96 09/07/18 16:59 09/07/18 17:59 09/07/18 18:00 Temperature 98.7 F Pulse Rate 86 86 84 Respiratory Rate 30 H 32 H 29 H Blood Pressure 138/84 144/89 H Pulse Oximetry 95 99 99 09/07/18 18:45 09/07/18 19:00 09/07/18 20:00 Temperature Pulse Rate 78 76 Respiratory Rate 24 22 Blood Pressure 133/78 134/78 Pulse Oximetry 96 96 96 09/07/18 20:24 09/07/18 21:00 09/07/18 22:00 Temperature Pulse Rate 84 68 Respiratory Rate 20 18 Blood Pressure 120/69 120/72 Pulse Oximetry 96 95 96 09/07/18 23:00 09/08/18 00:00 09/08/18 01:00 Temperature Pulse Rate 53 L 63 56 L Respiratory Rate 18 18 18 Blood Pressure 110/59 L 114/69 100/72 Pulse Oximetry 96 97 99 09/08/18 02:00 09/08/18 03:00 09/08/18 04:00 Temperature 98.4 F Pulse Rate 51 L 54 L 57 L Respiratory Rate 17 17 18 Blood Pressure 109/57 L 104/64 104/77 Pulse Oximetry 99 100 100 09/08/18 05:00 09/08/18 06:00 09/08/18 07:35 Temperature Pulse Rate 53 L 68 76 Respiratory Rate 17 24 28 H Blood Pressure 116/66 133/81 Pulse Oximetry 96 98 96 09/08/18 08:00 09/08/18 08:01 09/08/18 08:30 Temperature Pulse Rate 86 73 72 Respiratory Rate 36 H 25 H 25 H Blood Pressure 153/74 H 138/89 Pulse Oximetry 97 98 99 09/08/18 09:00 09/08/18 09:30 09/08/18 10:00 Temperature Pulse Rate 74 78 73 Respiratory Rate 31 H 36 H 23 Blood Pressure 147/80 H 129/88 132/83 Pulse Oximetry 98 97 98 09/08/18 10:30 09/08/18 11:00 09/08/18 11:16 Temperature Pulse Rate 93 H 77 Respiratory Rate 29 H 32 H Blood Pressure 135/86 136/90 Pulse Oximetry 94 L 99 100 09/08/18 11:30 09/08/18 12:00 Temperature Pulse Rate 81 66 Respiratory Rate 32 H 38 H Blood Pressure 143/65 H 118/67 Pulse Oximetry 99 98 Intake & Output 09/07/18 09/08/18 09/08/18 18:59 06:59 18:59 Intake Total 740 / 740 700 / 700 Output Total 400 / 400 Balance 740 / 740 300 / 300 Weight 66 kg Intake: IV 500 / 500 250 / 250 Heparin/D5W 25,000 U/250 mL 25, 250 / 250 000 unit In 250 ml @ Per Protocol IV.CONT TITRATE PRN Rx #:[id number] NS Inj 500 ML @ Wide Open IV. 500 / 500 SIG BOLUS ONE Rx#:[id number] Oral 240 / 240 450 / 450 Output: Urine 400 / 400 Other: # Voids 3 Date of Last Bowel Movement 09/06/18 09/06/18 09/06/18 Result Diagrams: 09/08/18 05:28 09/06/18 14:40 Objective Remarks: GENERAL: elderly female, lying in bed, no acute distress. HEENT: Normocephalic. Atraumatic. Pupils equal, round, reactive, conjugate. Mucous membranes are moist NECK: Trachea is midline. There is no JVD. CHEST: equal chest rise. nc o2. unlabored. no accessory muscle use. CARDIOVASCULAR: normal rate, slightly irregular rhythm. afib by tele. ABDOMEN: Soft, nontender, nondistended. No guarding. MUSCULOSKELETAL: Pulses 2+. No peripheral edema. NEUROLOGICAL: RASS 0. CAM-. follows commands. alert and oriented x 3. no focal deficits. Assessment and Plan - Assessment and Plan Plan: Assessment: 73yF with submassive PE by radiographic evidence, but without biomarker or echo evidence of RV strain. Clinically, this also appears to be subacute by clinical history, starting approximately a week ago. Active Problems: Atrial fibrillation Acute hypoxemia Transient hypotension- resolved Submassive pulmonary embolism Plan: - continue heparin infusion - would likely prefer to place back on home xarelto, as she has tolerated this well in the past -Inciting factor appears to be long distance travel by automobile few weeks ago. -Patient's mother of PE while she had pancreatic cancer around the same age. -Consult hematology for further evaluation - nc o2 for goal spo2 > 90% - 2d echo: normal RV size and function. EF 45%. - needs outpatient cardiac follow up (sees Dr. Epstein as an outpatient) for newly diagnosed mildly depressed LVEF -Discussed thrombolytic therapy in case of hemodynamic instability with patient and her and they were agreeable with that option if needed.
--- NOTE | 2018-09-08 17:50 | MB ---
cc: Lizbeth Reardon MD,Mele Daly MD DATE: 09/06/2018 REFERRING PHYSICIAN: Mele Mccall MD CHIEF COMPLAINT: Dr. Mccall requests a consultation for Ms. Jean regarding provoked pulmonary embolism. HISTORY OF PRESENT ILLNESS: Ms. Jean is a pleasant 73-year-old woman with history of atrial fibrillation, hypercholesterolemia, hypertension and hypothyroidism. She and her are retired and have spent some time in [place]. Apparently prior to going to [place] she has had a complete checkup with Dr. 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 Manley. She was given a clean bill. Most recent trip was an auto train ride to [facility]. They were quite sedentary during the overnight train ride. They also had a car ride after that. Ever since then, she felt that she was more short of breath and attributed it to her age. She had shortness of breath while walking a pavilion and increased heart rate. She came into the emergency room on 09/06/2018. A CT angiogram was performed that shows an extensive bilateral saddle pulmonary emboli, extending into the branches of all lobes bilaterally. There is marked enlargement of the heart and coronary calcifications. There were scattered atelectasis and fibrotic scarring bilaterally. She was admitted to the ICU with submassive pulmonary embolism. She was started on unfractionated heparin. Echo showed that the RV size was normal. Function was normal. She had some dyspnea on exertion, but no chest pain. She was feeling well and better at the time of the consultation. Hematology oncology is consulted for the pulmonary embolism. REVIEW OF SYSTEMS: She denies any fevers, chills or night sweats. She is up-to-date with mammograms, Pap smears and she has had a colonoscopy. She denies any urinary complaints. She has had no other intercurrent illness. She was otherwise previously active with a great deal of travel with her . PAST MEDICAL HISTORY: Atrial fibrillation, submassive pulmonary embolism, hypothyroidism, hypertension, hypercholesterolemia. SOCIAL HISTORY: She is and lives with her . She is a never smoker. She drinks 4 or more drinks per week. FAMILY HISTORY: Mother had pancreatic cancer and had pulmonary emboli. ALLERGIES: NO KNOWN DRUG ALLERGIES. CURRENT MEDICATIONS: 1. Ecotrin 2. Tenormin. 3. Lipitor. 4. Dulcolax. 5. Chlorhexidine. 6. Cardizem. 7. Unfractionated heparin. 8. Lactulose. 9. Synthroid. 10. Lynette-Colace. PHYSICAL EXAMINATION: VITAL SIGNS: Temperature 98.4, heart rate 67, respiratory rate 32, blood pressure 120/76, saturation 99%. GENERAL: Mrs. Jean is a well-developed, well-nourished woman in no acute distress. She is lying in bed with at bedside and granddaughters are accompanying her. HEENT: Her pupils are round, reactive to light and accommodation. Oropharynx is clear. NECK: Supple. LUNGS: Clear anteriorly. CARDIOVASCULAR: Reveals rate controlled rhythm. ABDOMEN: Benign. EXTREMITIES: Lower extremities with no edema. Pneumatic compression stockings are in place. No leg swelling. CT angiogram as described above. Doppler ultrasound of lower extremities negative. LABORATORY DATA: CBC is normal. Chemistry with a BUN 13, creatinine 0.8, total bilirubin of 1.1, AST 53. ASSESSMENT AND PLAN: Mrs. Jean is a 73-year-old woman with multiple medical problems described above. She has a provoked pulmonary embolism. She had a long car ride and a train ride on the [employer] train. She presented with submassive pulmonary embolism. We had a lengthy discussion about anticoagulation. I recommend continued anticoagulant therapy without interruption. We discussed risk and benefit of new oral anticoagulant. I concur that we could switch her to a new oral anticoagulant once she is ready to leave the hospital. We discussed the difference between Xarelto and Eliquis. We discussed the study of Eliquis for acute venous thromboembolic event treatment and for the secondary prophylaxis and subsequent prophylactic dosing. We also discussed a twice-daily dosing, which may be advantageous to her in light of her submassive pulmonary emboli. We discussed in general terms of pharmacokinetic of once daily dosing versus twice-daily dosing. They are more comfortable to proceed with twice-daily dosing with the Eliquis. She denies any significant GI toxicity related to the Xarelto when she was on it. However, she did not like the medication enough that she only took it every other day at times. We discussed the importance of maintaining and continuing therapeutic levels of anticoagulant therapy in light of her submassive pulmonary emboli. I defer on thrombophilia evaluation as it is unlikely to policy change clerk. We could certainly ask this question on an outpatient basis. Her questions were answered to her satisfaction. MD KELLY Strickland/porfirio , 04:11 PM , 04:24 PM
[2018-09-09] MEDS: Chlorhexidine Gluconate 2% 1 Pack (2 Cloths) TOPICAL SCH (03:00)
[2018-09-09] MEDS: Levothyroxine 50 MCG Tablet PO SCH (05:33)
[2018-09-09 07:50] LABS: Hematocrit 42.7 % (35.0-46.0); Hemoglobin 14.9 gm/dL (11.6-15.3); Mean Corpuscular Hemoglobin 34.4 pg (27.0-34.0); Mean Corpuscular Volume 98.3 fL (80.0-100.0); Mean Platelet Volume 10.2 fL (7.0-11.0); Platelet Count 142 th/mm3 (150-450); Red Blood Count 4.35 mil/mm3 (4.00-5.30); Red Cell Distribution Width 13.5 % (11.6-17.2); White Blood Count 7.3 th/mm3 (4.0-11.0)
[2018-09-09 08:07] LABS: Alanine Aminotransferase 27 U/L (10-53); Albumin 3.5 g/dL (3.4-5.0); Anion Gap 9 meq/L (5-15); Aspartate Aminotransferase 20 U/L (15-37); Blood Urea Nitrogen 11 mg/dL (7-18); Calcium 8.7 mg/dL (8.5-10.1); Carbon Dioxide 26.4 meq/L (21.0-32.0); Chloride 107 meq/L (98-107); Glomerular Filtration Rate 78 mL/min (>89); Glucose,Random 112 mg/dL (74-106); Potassium 3.3 meq/L (3.5-5.1); Sodium 142 meq/L (136-145)
[2018-09-09 08:09] LABS: Alkaline Phosphatase 86 U/L (45-117); Total Protein 6.7 g/dL (6.4-8.2)
[2018-09-09] MEDS: Senna/Docusate Sodium 8.6/50 MG Tablet PO SCH ×2 (08:09→21:03)
[2018-09-09] MEDS: dilTIAZem CD 180 MG Capsule PO SCH (08:09)
[2018-09-09] MEDS: Atenolol 50 MG Tablet PO SCH (08:10)
[2018-09-09] MEDS ORDERED: Potassium Chloride 25 MEQ Effervescent Tablet PO ONE (09:00)
--- NOTE | 2018-09-09 09:13 | P.PNIM ---
Subjective Interval history: The patient was resting comfortably in bed. She denied any chest pain, palpitations or shortness of breath. She said she would be interested in trying to walk around and work with physical therapy. She said she would be comfortable taking Eliquis. Discussed with nursing at the bedside. Physical Exam Vital signs: Vital Signs 09/08/18 09:30 09/08/18 10:00 09/08/18 10:30 Temperature Pulse Rate 78 73 93 H Respiratory Rate 36 H 23 29 H Blood Pressure 129/88 132/83 135/86 Pulse Oximetry 97 98 94 L 09/08/18 11:00 09/08/18 11:16 09/08/18 11:30 Temperature Pulse Rate 77 81 Respiratory Rate 32 H 32 H Blood Pressure 136/90 143/65 H Pulse Oximetry 99 100 99 09/08/18 12:00 09/08/18 12:30 09/08/18 13:00 Temperature Pulse Rate 66 59 L 57 L Respiratory Rate 38 H 27 H 29 H Blood Pressure 118/67 108/75 108/62 Pulse Oximetry 98 97 96 09/08/18 13:30 09/08/18 14:00 09/08/18 14:30 Temperature Pulse Rate 59 L 63 60 Respiratory Rate 34 H 26 H 30 H Blood Pressure 110/68 123/71 110/78 Pulse Oximetry 98 96 96 09/08/18 15:00 09/08/18 15:33 09/08/18 15:42 Temperature Pulse Rate 67 67 Respiratory Rate 32 H 29 H Blood Pressure 120/76 125/73 Pulse Oximetry 100 97 99 09/08/18 16:00 09/08/18 19:27 09/08/18 20:00 Temperature 98.8 F Pulse Rate 71 73 Respiratory Rate 36 H 21 Blood Pressure 112/75 120/62 Pulse Oximetry 95 95 93 L 09/08/18 20:30 09/08/18 21:00 09/08/18 21:30 Temperature Pulse Rate 69 81 79 Respiratory Rate 21 22 21 Blood Pressure 121/80 122/85 140/90 Pulse Oximetry 93 L 92 L 98 09/08/18 22:00 09/08/18 22:30 09/08/18 23:00 Temperature Pulse Rate 78 78 74 Respiratory Rate 21 20 21 Blood Pressure 141/90 H 121/73 119/79 Pulse Oximetry 97 96 93 L 09/08/18 23:30 09/09/18 00:00 09/09/18 00:05 Temperature 98.5 F Pulse Rate 74 71 73 Respiratory Rate 24 20 19 Blood Pressure 131/88 132/84 Pulse Oximetry 96 100 97 09/09/18 00:30 09/09/18 01:00 09/09/18 01:30 Temperature Pulse Rate 74 78 77 Respiratory Rate 19 18 19 Blood Pressure 132/81 132/88 130/94 H Pulse Oximetry 97 99 99 09/09/18 02:00 09/09/18 02:30 09/09/18 03:00 Temperature Pulse Rate 80 79 71 Respiratory Rate 20 20 17 Blood Pressure 126/77 136/84 Pulse Oximetry 92 L 95 94 L 09/09/18 03:12 09/09/18 03:30 09/09/18 04:00 Temperature 98.8 F Pulse Rate 75 76 77 Respiratory Rate 19 17 21 Blood Pressure 146/84 H 136/76 129/79 Pulse Oximetry 96 96 96 09/09/18 04:30 09/09/18 05:00 09/09/18 05:30 Temperature Pulse Rate 73 80 92 H Respiratory Rate 17 18 21 Blood Pressure 135/80 147/90 H 147/94 H Pulse Oximetry 95 95 96 09/09/18 06:00 09/09/18 07:20 Temperature Pulse Rate 96 H Respiratory Rate 23 Blood Pressure 149/89 H Pulse Oximetry 94 L 95 Intake & Output 09/08/18 09/09/18 09/09/18 18:59 06:59 18:59 Intake Total 1200 / 1200 240 / 240 Output Total 1999 550 / 550 Balance -800 / -800 -310 / -310 Weight 61.5 kg Intake: Oral 1200 / 1200 240 / 240 Output: Urine 1999 550 / 550 Other: # Voids 5 Date of Last Bowel Movement 09/06/18 09/08/18 # Bowel Movements 1 Narrative: GENERAL: No acute distress. HEENT: Normocephalic. Atraumatic. Pupils equal, round, reactive. Mucous membranes are moist. NECK: Trachea is midline. There is no JVD. CHEST: Clear to auscultation bilaterally. CARDIOVASCULAR: Tachycardic, irregularly irregular rhythm. ABDOMEN: Soft, nontender, nondistended. No guarding. MUSCULOSKELETAL: Pulses 2+. No peripheral edema. NEUROLOGICAL: Alert and oriented x 3. No focal deficits. Results - Labs CBC & Chem 7: 09/09/18 06:35 09/09/18 06:35 Laboratory Results - last 24 hr 09/09/18 09/09/18 09/09/18 06:35 06:35 06:35 WBC 7.3 RBC 4.35 Hgb 14.9 Hct 42.7 MCV 98.3 MCH 34.4 H MCHC 35.0 RDW 13.5 Plt Count 142 L MPV 10.2 APTT 42.9 H Sodium 142 Potassium 3.3 L Chloride 107 Carbon Dioxide 26.4 Anion Gap 9 BUN 11 Creatinine 0.73 Estimated GFR 78 L Random Glucose 112 H Calcium 8.7 Total Bilirubin 0.7 AST 20 ALT 27 Alkaline Phosphatase 86 Total Protein 6.7 Albumin 3.5 Assessment and Plan - Plan Saddle Pulmonary Embolism/acute respiratory failure Inciting factor appears to be long distance travel by automobile a few weeks ago. Hematology consult appreciated. -Continue Heparin drip. Will change to Eliquis prior to discharge. -oxygen and nebs as needed. -incentive spirometry. -PT eval. Afib with RVR/chronic systolic congestive heart failure HR not controlled 09/09. 2d echo: normal RV size and function, EF 45%. -continue PO diltiazem and atenolol. IV Cardizem as needed and start gtt if needed. -needs outpatient cardiac follow up (sees Dr. Epstein as an outpatient) for newly diagnosed mildly depressed LVEF. -telemetry. HTN Initially was hypotensive. -continue home rate control medications. -hold antihypertensives for now. Hypokalemia Potassium 3.3 09/09. -replete and monitor. -hold HCTZ. PPx: Heparin gtt Discharge Planning: Keep in ICU for now
[2018-09-09] MEDS: Heparin Drip 25,000 UNIT/250 ML BAG IV.CONT PRN (13:14)
[2018-09-10 05:24] LABS: Hematocrit 42.4 % (35.0-46.0); Hemoglobin 14.8 gm/dL (11.6-15.3); Mean Corpuscular Hemoglobin 34.7 pg (27.0-34.0); Mean Corpuscular Volume 99.2 fL (80.0-100.0); Mean Platelet Volume 9.7 fL (7.0-11.0); Platelet Count 122 th/mm3 (150-450); Red Blood Count 4.28 mil/mm3 (4.00-5.30); Red Cell Distribution Width 13.6 % (11.6-17.2); White Blood Count 8.6 th/mm3 (4.0-11.0)
[2018-09-10 05:45] LABS: Calcium 8.7 mg/dL (8.5-10.1); Magnesium 1.8 mg/dL (1.5-2.5); Potassium 3.6 meq/L (3.5-5.1)
[2018-09-10] MEDS: Levothyroxine 50 MCG Tablet PO SCH (06:30)
[2018-09-10] MEDS: Chlorhexidine Gluconate 2% 1 Pack (2 Cloths) TOPICAL SCH (06:30)
[2018-09-10] MEDS: dilTIAZem CD 180 MG Capsule PO SCH (08:01)
[2018-09-10] MEDS: Atenolol 50 MG Tablet PO SCH (08:01)
[2018-09-10] MEDS: Senna/Docusate Sodium 8.6/50 MG Tablet PO SCH ×2 (08:02→23:10)
--- NOTE | 2018-09-10 11:21 | P.PNONC ---
Subjective Interval history: Patient sitting in bed, no acute distress. Her is at the bedside. Patient complains of pain behind her left knee. She states this started today. She also reports being able to see her veins on that knee, which is new. She denies any shortness of breath. Denies chest pain. Inquires about transitioning to Eliquis. Discussed plan. Discussed with RN. Objective Vital Signs/Intake & Output: Vital Signs 09/09/18 12:00 09/09/18 13:00 09/09/18 14:00 Temperature 99.5 F Pulse Rate 98 H 86 76 Respiratory Rate 27 H 29 H 33 H Blood Pressure 121/83 123/76 118/75 Pulse Oximetry 95 95 96 09/09/18 15:00 09/09/18 16:00 09/09/18 19:00 Temperature 98.9 F Pulse Rate 86 79 78 Respiratory Rate 30 H 32 H 28 H Blood Pressure 125/94 H 124/71 120/73 Pulse Oximetry 93 L 94 L 94 L 09/09/18 19:28 09/09/18 20:00 09/09/18 21:00 Temperature 99.3 F Pulse Rate 72 77 Respiratory Rate 26 H 22 Blood Pressure 119/68 107/67 Pulse Oximetry 96 96 97 09/09/18 22:00 09/09/18 23:00 09/10/18 00:00 Temperature Pulse Rate 86 90 99 H Respiratory Rate 21 23 23 Blood Pressure 120/70 128/87 124/73 Pulse Oximetry 100 97 95 09/10/18 01:00 09/10/18 02:00 09/10/18 03:00 Temperature Pulse Rate 103 H 98 H 121 H Respiratory Rate 22 22 23 Blood Pressure 128/76 104/64 106/72 Pulse Oximetry 92 L 94 L 96 09/10/18 04:00 09/10/18 05:00 09/10/18 06:00 Temperature 99.0 F Pulse Rate 111 H 113 H 108 H Respiratory Rate 22 22 23 Blood Pressure 111/61 104/70 124/74 Pulse Oximetry 97 97 99 09/10/18 07:00 09/10/18 08:00 09/10/18 09:00 Temperature 98.8 F Pulse Rate 121 H 147 H 117 H Respiratory Rate 23 28 H 22 Blood Pressure 129/80 124/81 Pulse Oximetry 99 96 94 L 09/10/18 09:01 09/10/18 10:00 Temperature Pulse Rate 114 H 106 H Respiratory Rate 23 30 H Blood Pressure 134/73 119/69 Pulse Oximetry 95 96 Intake & Output 09/09/18 09/10/18 09/10/18 18:59 06:59 18:59 Intake Total 750 / 750 500 / 500 Output Total 750 / 750 500 / 500 Balance 0 / 0 0 / 0 Weight 60 kg Intake: IV 250 / 250 Heparin/D5W 25,000 U/250 mL 25, 250 / 250 000 unit In 250 ml @ Per Protocol IV.CONT TITRATE PRN Rx #:[id number] Oral 500 / 500 500 / 500 Output: Urine 750 / 750 500 / 500 Other: # Incontinent Voids 1 Date of Last Bowel Movement 09/08/18 09/09/18 09/10/18 # Bowel Movements 1 1 Result Diagrams: 09/10/18 04:51 09/10/18 04:51 Laboratory Results: Laboratory Results - last 24 hr 09/10/18 09/10/18 09/10/18 04:51 04:51 04:51 WBC 8.6 RBC 4.28 Hgb 14.8 Hct 42.4 MCV 99.2 MCH 34.7 H MCHC 35.0 RDW 13.6 Plt Count 122 L MPV 9.7 APTT 42.8 H Sodium 140 Potassium 3.6 Chloride 105 Carbon Dioxide 27.0 Anion Gap 8 BUN 13 Creatinine 0.76 Estimated GFR 75 L Random Glucose 122 H Calcium 8.7 Magnesium 1.8 Medications: Active Medications Generic Name Dose Route Start Last Admin Trade Name Freq PRN Reason Stop Dose Admin Aspirin 81 mg 09/07/18 09:00 09/10/18 08:02 Ecotrin PO 81 mg DAILY [facility]NEY Administration Atenolol 50 mg 09/07/18 09:00 09/10/18 08:01 Tenormin PO 50 mg DAILY [facility] Administration Atorvastatin Calcium 10 mg 09/06/18 21:00 09/09/18 21:02 Lipitor PO 10 mg DAILY@2100 [facility] Administration Chlorhexidine Gluconate 3 pack 09/08/18 04:00 09/10/18 06:30 Chlorhexidine 2% Cloth TOPICAL 09/13/18 03:59 3 pack DAILY@0400 [facility] Administration Diltiazem HCl 180 mg 09/07/18 09:00 09/10/18 08:01 Cardizem Cd 24hr PO 180 mg DAILY [facility] Administration Heparin Sodium/Dextrose 25,000 unit in 250 mls @ 0 mls/hr 09/06/18 16:18 13:14 Heparin/D5w 25,000 U/250 Ml IV.CONT 700 units/hr TITRATE PRN 7 mls/hr Per Protocol Administration Protocol Per Protocol Levothyroxine Sodium 50 mcg 09/07/18 06:00 09/10/18 06:30 Synthroid PO 50 mcg DAILY@0600 [facility] Administration Senna/Docusate Sodium 1 tab 09/06/18 21:00 09/10/18 08:02 Lynette-Colace PO Not Given BID BR[facility]NEY Sodium Chloride 2 ml 09/06/18 21:00 09/10/18 08:02 Ns Flush IV.FLUSH 2 ml BID [facility] Administration Sodium Chloride 2 ml 09/06/18 16:33 09/10/18 08:02 Ns Flush IV.FLUSH 2 ml PRN PRN Administration FLUSH AFTER USING IV ACCESS Objective Remarks: GENERAL: Well-nourished, well-developed elderly female patient, no acute distress. SKIN: Warm and dry. HEAD: Normocephalic. EYES: No scleral icterus. No injection or drainage. NECK: Supple, trachea midline. CARDIOVASCULAR: Irregularly irregular rhythm without murmurs. RESPIRATORY: Posterior breath sounds equal bilaterally. No accessory muscle use. O2 via NC at 2L. GASTROINTESTINAL: Abdomen soft, non-tender, nondistended. EXTREMITIES: No cyanosis, or edema. SCDs in place. MUSCULOSKELETAL: Adequate muscle tone. NEUROLOGICAL: No obvious focal deficit. Awake, alert, and oriented x3. PSYCHIATRIC: Appropriate mood and affect; insight and judgment normal. Assessment/Plan - Plan Mrs. Jean is a 73-year-old woman with multiple medical problems described above. She has a provoked pulmonary embolism. She had a long car ride and a train ride on the [employer] train. She presented with submassive pulmonary embolism. Recommendations/plan: 1. Pulmonary embolism, currently on heparin drip. Per nurse attending has deferred to hematology for transition off heparin drip and mentioned a possible discharge today. We will transition her to Eliquis tonight. Recommend monitoring overnight to ensure that she tolerates the Eliquis. 2. Left posterior to knee pain. Subjectively started this a.m. Will repeat venous ultrasound, previously negative for DVT, this will not change the treatment plan however would recommend not using sequentials if she does in fact have a DVT. 3. Once cleared by attending, the patient may be transferred out of the ICU. We will [facility] this evening. Discussed with RN. 4. Once discharged from the hospital, the patient will need to follow-up with hematology. Information sent to new patient referrals and the patient has been provided with contact information.
--- NOTE | 2018-09-10 12:05 | US ---
EXAM DATE: 09/10/2018 12:02 PM EST AGE/SEX: 73 years / Female INDICATIONS: Left knee pain. Pulmonary embolism. CLINICAL DATA: This is the patient's initial encounter. Patient reports that signs and symptoms have been present for 1 day and indicates a pain score of 3/10. MEDICAL/SURGICAL HISTORY: Hypertension. Hypercholesterolemia. Atrial fibrillation. Thyroid dis ease. Pulmonary embolism. Hysterectomy. COMPARISON: [facility], US VENOUS DOPPLER LEG BI, 09/07/2018. . TECHNIQUE: Venous ultrasound of both lower extremities was performed from the inguinal ligament to t he proximal calf. Real-time, color Doppler and spectral tracing, compression and augmentation techni ques were used. FINDINGS: Normal compression of the deep venous system from the inguinal region to the proximal calf . No echogenic clot is seen. Normal response of the venous system to augmentation and respiration. In the left popliteal fossa, an elongated fluid echogenicity collection is present which is presumabl y a Bello's cyst. CONCLUSION: The study is negative for lower extremity deep venous thrombosis. Electronically signed by: Vlad Gallardo MD Board Certified Radiologist 09/10/2018 12:03 PM EST
[2018-09-10] MEDS: Acetaminophen 325 MG Tablet PO PRN ×2 (12:27→20:45)
--- NOTE | 2018-09-10 18:54 | P.PNIM ---
Subjective Interval history: PT reports the patient is doing well. Patient himself has no complaints. Reports having some mild soreness in the popliteal area of her left knee but she thinks is due to the sleeping position of her leg. She has a few questions about clot complications. Physical Exam Vital signs: Vital Signs 09/09/18 19:00 09/09/18 19:28 09/09/18 20:00 Temperature 99.3 F Pulse Rate 78 72 Respiratory Rate 28 H 26 H Blood Pressure 120/73 119/68 Pulse Oximetry 94 L 96 96 09/09/18 21:00 09/09/18 22:00 09/09/18 23:00 Temperature Pulse Rate 77 86 90 Respiratory Rate 22 21 23 Blood Pressure 107/67 120/70 128/87 Pulse Oximetry 97 100 97 09/10/18 00:00 09/10/18 01:00 09/10/18 02:00 Temperature Pulse Rate 99 H 103 H 98 H Respiratory Rate 23 22 22 Blood Pressure 124/73 128/76 104/64 Pulse Oximetry 95 92 L 94 L 09/10/18 03:00 09/10/18 04:00 09/10/18 05:00 Temperature 99.0 F Pulse Rate 121 H 111 H 113 H Respiratory Rate 23 22 22 Blood Pressure 106/72 111/61 104/70 Pulse Oximetry 96 97 97 09/10/18 06:00 09/10/18 07:00 09/10/18 07:15 Temperature Pulse Rate 108 H 121 H Respiratory Rate 23 23 Blood Pressure 124/74 129/80 Pulse Oximetry 99 99 96 09/10/18 08:00 09/10/18 09:00 09/10/18 09:01 Temperature 98.8 F Pulse Rate 153 H 117 H 114 H Respiratory Rate 28 H 22 23 Blood Pressure 124/81 134/73 Pulse Oximetry 96 94 L 95 09/10/18 10:00 09/10/18 11:00 09/10/18 12:00 Temperature 98.1 F Pulse Rate 106 H 106 H 95 H Respiratory Rate 30 H 27 H 24 Blood Pressure 119/69 127/71 128/69 Pulse Oximetry 96 93 L 92 L 09/10/18 13:00 09/10/18 14:00 09/10/18 15:00 Temperature Pulse Rate 80 63 66 Respiratory Rate 27 H 22 22 Blood Pressure 99/58 L 89/55 L 82/48 L Pulse Oximetry 93 L 94 L 92 L 09/10/18 15:02 09/10/18 16:00 Temperature 98.9 F Pulse Rate 67 67 Respiratory Rate 22 25 H Blood Pressure 92/55 L 94/55 L Pulse Oximetry 94 L 96 Intake & Output 09/09/18 09/10/18 09/10/18 18:59 06:59 18:59 Intake Total 750 / 750 500 / 500 900 / 900 Output Total 750 / 750 500 / 500 450 / 450 Balance 0 / 0 0 / 0 450 / 450 Weight 60 kg Intake: IV 250 / 250 200 / 200 Heparin/D5W 25,000 U/250 mL 25, 250 / 250 200 / 200 000 unit In 250 ml @ Per Protocol IV.CONT TITRATE PRN Rx #:[id number] Oral 500 / 500 500 / 500 700 / 700 Output: Urine 750 / 750 500 / 500 450 / 450 Other: # Incontinent Voids 1 2 Date of Last Bowel Movement 09/08/18 09/09/18 09/10/18 # Bowel Movements 1 1 Narrative: Heart sounds are tachycardic and irregular Clear lungs bilaterally, labored breathing No lower extremity edema Results - Labs CBC & Chem 7: 09/10/18 04:51 09/10/18 04:51 Laboratory Results - last 24 hr 09/10/18 09/10/18 09/10/18 04:51 04:51 04:51 WBC 8.6 RBC 4.28 Hgb 14.8 Hct 42.4 MCV 99.2 MCH 34.7 H MCHC 35.0 RDW 13.6 Plt Count 122 L MPV 9.7 APTT 42.8 H Sodium 140 Potassium 3.6 Chloride 105 Carbon Dioxide 27.0 Anion Gap 8 BUN 13 Creatinine 0.76 Estimated GFR 75 L Random Glucose 122 H Calcium 8.7 Magnesium 1.8 - Imaging Impressions Venous Doppler Study 09/10/18 00:00 CONCLUSION: The study is negative for lower extremity deep venous thrombosis. Assessment and Plan - Plan 73-year-old white female admitted for shortness of breath secondary to saddle pulmonary embolism . Saddle Pulmonary Embolism/acute respiratory failure Inciting factor appears to be long distance travel by automobile a few weeks ago. Hematology consult appreciated. -Transitioned over from heparin to Eliquis today by oncology -oxygen and nebs as needed. -incentive spirometry. -PT eval. Afib with RVR/chronic systolic congestive heart failure Hypertension HR not controlled 09/09. 2d echo: normal RV size and function, EF 45%. -To better just for borderline blood pressures we will decrease diltiazem from 180 mg to 120 mg Exar I will switch atenolol to Coreg as this is more appropriate for sCHF Hypokalemia -Resolved Eliquis Discharge Planning: DC tomorrow.
[2018-09-10] MEDS: Carvedilol 6.25 MG Tablet PO SCH (20:42)
[2018-09-10 23:13] VITALS: RESP 18
[2018-09-11] MEDS: Chlorhexidine Gluconate 2% 1 Pack (2 Cloths) TOPICAL SCH (04:12)
[2018-09-11] MEDS: Levothyroxine 50 MCG Tablet PO SCH (07:00)
[2018-09-11] MEDS ORDERED: dilTIAZem CD 120 MG Capsule PO SCH (09:00)
--- NOTE | 2018-09-11 09:02 | P.PNONC ---
Subjective Interval history: Patient sitting up in bed, resting comfortably. She has no complaints at this time. She denies any bleeding. Denies any side effects from the Eliquis she started last night. Denies any shortness of breath. O2 saturation on room air 95-96%. She has been tachycardic on the ECG monitor this a.m., since arrival to this floor-monitor showing afib with rates 13- 150bpm. She does have a history of atrial fibrillation. she is asymptomatic at this time. Objective Vital Signs/Intake & Output: Vital Signs 09/10/18 09:00 09/10/18 09:01 09/10/18 10:00 Temperature Pulse Rate 117 H 114 H 106 H Respiratory Rate 22 23 30 H Blood Pressure 134/73 119/69 Pulse Oximetry 94 L 95 96 09/10/18 11:00 09/10/18 12:00 09/10/18 13:00 Temperature 98.1 F Pulse Rate 106 H 95 H 80 Respiratory Rate 27 H 24 27 H Blood Pressure 127/71 128/69 99/58 L Pulse Oximetry 93 L 92 L 93 L 09/10/18 14:00 09/10/18 15:00 09/10/18 15:02 Temperature Pulse Rate 63 66 67 Respiratory Rate 22 22 22 Blood Pressure 89/55 L 82/48 L 92/55 L Pulse Oximetry 94 L 92 L 94 L 09/10/18 16:00 09/10/18 19:48 09/10/18 20:04 Temperature 98.9 F 99.6 F Pulse Rate 67 93 H 79 Respiratory Rate 25 H 21 Blood Pressure 94/55 L 101/67 Pulse Oximetry 96 95 09/10/18 21:15 09/10/18 23:49 09/11/18 00:02 Temperature 98.5 F Pulse Rate 88 81 Respiratory Rate 18 18 Blood Pressure 97/59 L Pulse Oximetry 95 09/11/18 04:06 09/11/18 04:52 Temperature 98.9 F Pulse Rate 78 89 Respiratory Rate 18 Blood Pressure 102/70 Pulse Oximetry 97 Intake & Output 09/10/18 09/11/18 09/11/18 18:59 06:59 18:59 Intake Total 900 / 900 Output Total 450 / 450 Balance 450 / 450 Weight 56.5 kg Intake: IV 200 / 200 Heparin/D5W 25,000 U/250 mL 25, 200 / 200 000 unit In 250 ml @ Per Protocol IV.CONT TITRATE PRN Rx #:[id number] Oral 700 / 700 Output: Urine 450 / 450 Other: # Voids 2 # Incontinent Voids 2 Date of Last Bowel Movement 09/10/18 # Bowel Movements 1 Result Diagrams: 09/10/18 04:51 09/10/18 04:51 Imaging Studies: Impressions Venous Doppler Study 09/10/18 00:00 CONCLUSION: The study is negative for lower extremity deep venous thrombosis. Medications: Active Medications Generic Name Dose Route Start Last Admin Trade Name Freq PRN Reason Stop Dose Admin Acetaminophen 650 mg 09/10/18 11:24 09/10/18 20:45 Tylenol PO 650 mg Q4H PRN Administration pain2-4 Apixaban 10 mg 09/10/18 21:00 09/10/18 20:42 Eliquis PO 10 mg BID BRITTNEY Administration Aspirin 81 mg 09/07/18 09:00 09/10/18 08:02 Ecotrin PO 81 mg DAILY BRITTNEY Administration Atorvastatin Calcium 10 mg 09/06/18 21:00 09/10/18 20:42 Lipitor PO 10 mg DAILY@2100 [facility] Administration Carvedilol 6.25 mg 09/10/18 21:00 09/10/18 20:42 Coreg PO 6.25 mg BID [facility] Administration Chlorhexidine Gluconate 3 pack 09/08/18 04:00 09/11/18 04:12 Chlorhexidine 2% Cloth TOPICAL 09/13/18 03:59 Not Given DAILY@0400 [facility] Levothyroxine Sodium 50 mcg 09/07/18 06:00 09/11/18 07:00 Synthroid PO 50 mcg DAILY@0600 [facility] Administration Senna/Docusate Sodium 1 tab 09/06/18 21:00 09/10/18 23:10 Lynette-Colace PO Not Given BID [facility] Sodium Chloride 2 ml 09/06/18 21:00 09/10/18 20:42 Ns Flush IV.FLUSH 2 ml BID BRITTNEY Administration Sodium Chloride 2 ml 09/06/18 16:33 09/10/18 08:02 Ns Flush IV.FLUSH 2 ml PRN PRN Administration FLUSH AFTER USING IV ACCESS Objective Remarks: GENERAL: Well-nourished, well-developed elderly female patient, no acute distress. SKIN: Warm and dry. HEAD: Normocephalic. EYES: No scleral icterus. No injection or drainage. NECK: Supple, trachea midline. CARDIOVASCULAR: Irregularly irregular rhythm without murmurs. RESPIRATORY: Posterior breath sounds clear, equal bilaterally. No accessory muscle use. O2 via NC at 2L-sat 97%, RA 95-96%. GASTROINTESTINAL: Abdomen soft, non-tender, nondistended. EXTREMITIES: No cyanosis, or edema. MUSCULOSKELETAL: Adequate muscle tone. NEUROLOGICAL: No obvious focal deficit. Awake, alert, and oriented x3. PSYCHIATRIC: Appropriate mood and affect; insight and judgment normal. Assessment/Plan - Plan Mrs. Jean is a 73-year-old woman with multiple medical problems described above. She has a provoked pulmonary embolism. She had a long car ride and a train ride on the [employer] train. She presented with submassive pulmonary embolism. Recommendations/plan: 1. Pulmonary embolism, patient transition to Eliquis last night. Tolerating well. O2 sat 95-96 % on RA. Denies SOB or CP. 2. Chronic atrial fibrillation, elevated HR 130's-150bpm. Management per attending. 3. From a hematology standpoint, the patient may be discharged home on Eliquis. Anticoagulation education discussed with the patient. All questions were answered. She will follow-up with hematology on an outpatient basis.
[2018-09-11] MEDS: Acetaminophen 325 MG Tablet PO PRN (09:33)
[2018-09-11] MEDS: Carvedilol 6.25 MG Tablet PO SCH (09:34)
--- NOTE | 2018-09-11 10:53 | P.PN ---
Subjective Interval history: Follow-up saddle pulmonary embolism September 11, 2018-patient seen and examined, denies any chest pain or shortness of breath. Currently on room air. Episode of a flutter however patient has a history of chronic atrial fibrillation. Physical Exam Vital signs: Vital Signs 09/10/18 11:00 09/10/18 12:00 09/10/18 13:00 Temperature 98.1 F Pulse Rate 106 H 95 H 80 Respiratory Rate 27 H 24 27 H Blood Pressure 127/71 128/69 99/58 L Pulse Oximetry 93 L 92 L 93 L 09/10/18 14:00 09/10/18 15:00 09/10/18 15:02 Temperature Pulse Rate 63 66 67 Respiratory Rate 22 22 22 Blood Pressure 89/55 L 82/48 L 92/55 L Pulse Oximetry 94 L 92 L 94 L 09/10/18 16:00 09/10/18 19:48 09/10/18 20:04 Temperature 98.9 F 99.6 F Pulse Rate 67 93 H 79 Respiratory Rate 25 H 21 Blood Pressure 94/55 L 101/67 Pulse Oximetry 96 95 09/10/18 21:15 09/10/18 23:49 09/11/18 00:02 Temperature 98.5 F Pulse Rate 88 81 Respiratory Rate 18 18 Blood Pressure 97/59 L Pulse Oximetry 95 09/11/18 04:06 09/11/18 04:52 Temperature 98.9 F Pulse Rate 78 89 Respiratory Rate 18 Blood Pressure 102/70 Pulse Oximetry 97 Intake & Output 09/10/18 09/11/18 09/11/18 18:59 06:59 18:59 Intake Total 900 / 900 Output Total 450 / 450 Balance 450 / 450 Weight 56.5 kg Intake: IV 200 / 200 Heparin/D5W 25,000 U/250 mL 25, 200 / 200 000 unit In 250 ml @ Per Protocol IV.CONT TITRATE PRN Rx #:[id number] Oral 700 / 700 Output: Urine 450 / 450 Other: # Voids 2 # Incontinent Voids 2 Date of Last Bowel Movement 09/10/18 # Bowel Movements 1 Narrative: GENERAL: NAD SKIN: Warm and dry. HEAD: Atraumatic. Normocephalic. EYES: Pupils equal and round. No scleral icterus. No injection or drainage. ENT: No nasal bleeding or discharge. Mucous membranes pink and moist. NECK: Trachea midline. No JVD. CARDIOVASCULAR: Irregular regular rate and rhythm. RESPIRATORY: No accessory muscle use. Clear to auscultation. Breath sounds equal bilaterally. GASTROINTESTINAL: Abdomen soft, non-tender, nondistended. Hepatic and splenic margins not palpable. MUSCULOSKELETAL: Extremities without clubbing, cyanosis, or edema. No obvious deformities. NEUROLOGICAL: Awake and alert. No obvious cranial nerve deficits. Motor grossly within normal limits. Five out of 5 muscle strength in the arms and legs. Normal speech. PSYCHIATRIC: Appropriate mood and affect; insight and judgment normal. Results - Labs CBC & Chem 7: 09/10/18 04:51 09/10/18 04:51 - Imaging Impressions Venous Doppler Study 09/10/18 00:00 CONCLUSION: The study is negative for lower extremity deep venous thrombosis. - Procedures None Assessment and Plan - Plan 73-year-old female with saddle pulmonary embolism Currently on Eliquis Appreciate input from hematology Doppler negative for DVT Afib with RVR/chronic systolic congestive heart failure Hypertension Cardizem was decreased to 120 mg daily Continue with Coreg, Eliquis Hyperlipidemia Continue statin Hypokalemia -Resolved Eliquis
--- NOTE | 2018-09-11 10:57 | P.DS ---
Date of admission: 09/06/18 16:31 Primary care physician: Torie Padgett MD Brief History from admission: 73 yo M with h/o HTN,A.fib,Hypothyroidism, who presented to ER with shortness of breath. Patient reports that SOB started about 3 months ago after coming back from [place], but has been progressively getting worse. Prior to that she could to 3 miles on treadmill,and even hike without problems. When she came back she noticed that she got some SOB with activity but non when at rest). She had to reduce the distance done on treadmill. She would get short of breath going up 2 flights of stairs. This progressively got worse and this morning while making the bed she felt tired and SOB. She went to the [place] with her this afternoon and was exhausted and SOB after just walking a short distance, hence she decided to come to ER. 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 She denies dizziness, lightheadedness,chest pain, or passing out. ROS is negative. On presentation to the ER,patient had stable vitals, labs were unremarkable, troponin negative. CXR was unremarkable.CTA chest revealed extensive bilateral saddle pulmonary emboli extending into branches of all lobes bilaterally. Patient was started on heparin drip. DS: Medications - Discharge Medications Prescriptions: apixaban [Eliquis] 10 mg PO BID #60 tab carvedilol [Coreg] 6.25 mg PO BID #60 tab diltiazem HCl 120 mg PO DAILY #30 cap DS: Summary Hospital Course: Patient was diagnosed with Saddle pulmonary embolus for which she was initially started on heparin drip and was eventually transitioned to Eliquis. Hematology was consulted, and DVT was ruled out. Patient maintain her oxygen saturation throughout. BP meds were adjusted accordingly. Cardizem was decreased to 120 mg daily and patient was started on Coreg. She was continued on the treatment for other chronic medical conditions. Prior to discharge, patient's conditions improved and vitals remained stable. - Time Spent with Patient Total time spent providing and/or coordinating discharge services: Less than 30 minutes - Quality: VTE Deep Vein Thrombosis/Pulmonary Embolism Present on Admission: Yes Exam Vital signs: Vital Signs 09/10/18 11:00 09/10/18 12:00 09/10/18 13:00 Temperature 98.1 F Pulse Rate 106 H 95 H 80 Respiratory Rate 27 H 24 27 H Blood Pressure 127/71 128/69 99/58 L Pulse Oximetry 93 L 92 L 93 L 09/10/18 14:00 09/10/18 15:00 09/10/18 15:02 Temperature Pulse Rate 63 66 67 Respiratory Rate 22 22 22 Blood Pressure 89/55 L 82/48 L 92/55 L Pulse Oximetry 94 L 92 L 94 L 09/10/18 16:00 09/10/18 19:48 09/10/18 20:04 Temperature 98.9 F 99.6 F Pulse Rate 67 93 H 79 Respiratory Rate 25 H 21 Blood Pressure 94/55 L 101/67 Pulse Oximetry 96 95 09/10/18 21:15 09/10/18 23:49 09/11/18 00:02 Temperature 98.5 F Pulse Rate 88 81 Respiratory Rate 18 18 Blood Pressure 97/59 L Pulse Oximetry 95 09/11/18 04:06 09/11/18 04:52 Temperature 98.9 F Pulse Rate 78 89 Respiratory Rate 18 Blood Pressure 102/70 Pulse Oximetry 97 Intake & Output 09/10/18 09/11/18 09/11/18 18:59 06:59 18:59 Intake Total 900 / 900 Output Total 450 / 450 Balance 450 / 450 Weight 56.5 kg Intake: IV 200 / 200 Heparin/D5W 25,000 U/250 mL 25, 200 / 200 000 unit In 250 ml @ Per Protocol IV.CONT TITRATE PRN Rx #:[id number] Oral 700 / 700 Output: Urine 450 / 450 Other: # Voids 2 # Incontinent Voids 2 Date of Last Bowel Movement 09/10/18 # Bowel Movements 1 Narrative: GENERAL: NAD SKIN: Warm and dry. HEAD: Atraumatic. Normocephalic. EYES: Pupils equal and round. No scleral icterus. No injection or drainage. ENT: No nasal bleeding or discharge. Mucous membranes pink and moist. NECK: Trachea midline. No JVD. CARDIOVASCULAR: Irregular regular rate and rhythm. RESPIRATORY: No accessory muscle use. Clear to auscultation. Breath sounds equal bilaterally. GASTROINTESTINAL: Abdomen soft, non-tender, nondistended. Hepatic and splenic margins not palpable. MUSCULOSKELETAL: Extremities without clubbing, cyanosis, or edema. No obvious deformities. NEUROLOGICAL: Awake and alert. No obvious cranial nerve deficits. Motor grossly within normal limits. Five out of 5 muscle strength in the arms and legs. Normal speech. PSYCHIATRIC: Appropriate mood and affect; insight and judgment normal. Results Procedures completed during hospitalization: None - Impressions ITS Impressions Chest X-Ray 09/06/18 14:16 CONCLUSION: Cardiomegaly. Chest CTA 09/06/18 14:25 CONCLUSION: 1. Extensive large bilateral saddle pulmonary emboli are noted extending into the branches of all lobes bilaterally. 2. Markedly enlarged heart and coronary artery calcifications. 3. Scattered atelectasis and/or fibrotic scarring bilaterally. Venous Doppler Study 09/10/18 00:00 CONCLUSION: The study is negative for lower extremity deep venous thrombosis. Discharge Plan - Discharge Disposition Patient Disposition: 01 Discharge Home - Discharge Condition Condition: Good - Discharge Order Discharge Orders: Discharge Order (Routine); Ordered 09/11/18 Ordered By: Darrel Jaime ED Use Only Admit Order (Routine); Ordered 09/06/18 Ordered By: Sahil Thurston - Physicians Team Primary Care Provider: Torie Padgett Attending Provider: Darrel Jiame Other Providers: [employer]urance ; Vannessa Smith MD ; Lizbeth Reardon MD
[2018-09-11 12:30] VITALS: BP 119/80; PULSE 68; TEMP 99.2; O2SAT 96
== END 2018-09-11 12:31 | disposition home or self-care (01) | DRG 175 ==
LOC: PHED 13:49 → PHEDA 16:31 → PH3 17:25 → PHICU 18:32 → HIMC 09-07 18:35 → HCIN 09-10 18:51
PROVIDERS: ADMIT Hospitalist; ATTEND Hospitalist
CPT/HCPCS: 71010; 71045; 71275; 80048; 80053; 83520; 83735; 83880; 84484; 85025; 85027; 85610; 85730; 87641; 93005; 93306; 93970; 93971; 97110; 97116; 97163; 97530; 99285; J1644; J7040; Q9967